=== PATIENT | female | born 1985 | race African-American/Black ===

== ENCOUNTER 2016-11-05 19:02 | Emergency (ER) | payer OTHER ==
[2016-11-05] MEDS ORDERED: METOCLOPRAMIDE HCL ORAL SOLN 10 MG/10 ML UDCUP PO ONE (19:20)
[2016-11-05] MEDS ORDERED: ASPIRIN 81 MG TABLET, CHEWABLE PO ONE (19:20)
[2016-11-05] MEDS ORDERED: MAG HYDROX/AL HYDROX/SIMETH SUSP 30 ML UDCUP PO ONE ×2 (19:20→22:07)
[2016-11-05] MEDS ORDERED: LIDOCAINE 2% VISCOUS SOLN 20 ML UDCUP PO ONE (19:20)
--- NOTE | 2016-11-05 19:20 | ER Document Report ---
ED Medical Screen (RME) - General Chief Complaint: Chest Pain Stated Complaint: CHEST PAIN Time seen by provider: 19:18 Mode of Arrival: Ambulatory Information source: Patient Notes: 31-year-old female presents to ED for substernal chest pain that radiates to the left shoulder denies shortness of breath. Denies any diaphoresis or coughing. She states she thought it was indigestion it will not relieve. As menstrual period 10/27/2016 I have greeted and performed a rapid initial assessment of this patient. A comprehensive ED assessment and evaluation of the patient, analysis of test results and completion of medical decision making process will be conducted by an additional ED providers. TRAVEL OUTSIDE OF THE [place] IN LAST 30 DAYS: No - Related Data Allergies/Adverse Reactions: No Known Allergies Allergy (Verified 07/19/15 08:43) Past Medical History Past Surgical History: Reports: Hx Gynecologic Surgery - tubal ligation
--- NOTE | 2016-11-05 20:00 | EKG REPORT ---
SEVERITY:- NORMAL ECG - SINUS RHYTHM : Confirmed by: Vanessa Moreno MD 05-Nov-2016 20:00:20
[2016-11-05 20:19] LABS: ABSOLUTE BASOPHILS # (AUTO) 0.1 10^3/uL (0.0-0.2); ABSOLUTE EOSINOPHILS # (AUTO) 0.4 10^3/uL (0.0-0.6); ABSOLUTE LYMPHOCYTES (AUTO) 2.6 10^3/uL (0.5-4.7); ABSOLUTE MONOCYTES (AUTO) 0.6 10^3/uL (0.1-1.4); ABSOLUTE NEUT (AUTO) 4.3 10^3/uL (1.7-8.2); BASOPHILS % (AUTO) 0.8 % (0-2); EOSINOPHILS % (AUTO) 4.5 % (0-6); HEMATOCRIT 37.4 % (36.0-47.0); HEMOGLOBIN 11.8 g/dL (12.0-15.5); LYMPHOCYTES % (AUTO) 32.7 % (13-45); MEAN CORPUSCULAR HEMOGLOBIN 23.1 pg (27.0-33.4); MEAN CORPUSCULAR HGB CONC 31.7 g/dL (32.0-36.0); MEAN CORPUSCULAR VOLUME 73 fl (80-97); MONOCYTES % (AUTO) 7.9 % (3-13); RED BLOOD COUNT 5.12 10^6/uL (3.72-5.28); RED CELL DISTRIBUTION WIDTH 15.1 % (11.5-14.0); SEGMENTED NEUTROPHILS % (AUTO) 54.1 % (42-78)
[2016-11-05 20:32] LABS: ALANINE AMINOTRANSFERASE 42 U/L (9-52); ALBUMIN 4.3 g/dL (3.5-5.0); ALKALINE PHOSPHATASE 65 U/L (38-126); ANION GAP 14 (5-19); ASPARTATE AMINO TRANSFERASE 26 U/L (14-36); BILIRUBIN,TOTAL 0.4 mg/dL (0.2-1.3); BLOOD UREA NITROGEN 11 mg/dL (7-20); CALCIUM 10.1 mg/dL (8.4-10.2); CARBON DIOXIDE 24 mmol/L (22-30); CHLORIDE 102 mmol/L (98-107); CREATINE KINASE 89 U/L (30-135); CREATININE RESULT 0.87 mg/dL (0.52-1.25); GLUCOSE 98 mg/dL (75-110); LIPASE 71.1 U/L (23-300); SODIUM 140.4 mmol/L (137-145); TOTAL PROTEIN 8.3 g/dL (6.3-8.2)
[2016-11-05 20:45] LABS: CREATINE KINASE MB < 0.22 ng/mL (<4.55); TROPONIN I < 0.012 ng/mL
[2016-11-05 21:49] LABS: APPEARANCE,URINE CLEAR; BILIRUBIN,URINE NEGATIVE (NEGATIVE); GLUCOSE, URINE NEGATIVE (NEGATIVE); KETONES,URINE NEGATIVE (NEGATIVE); LEUKOCYTE ESTERASE,URINE NEGATIVE (NEGATIVE); NITRITE,URINE NEGATIVE (NEGATIVE); PROTEIN,URINE NEGATIVE (NEGATIVE); URINE SPECIFIC GRAVITY 1.009; UROBILINOGEN,URINE NEGATIVE mg/dL (<2.0)
[2016-11-05] MEDS ORDERED: FAMOTIDINE 20 MG TABLET PO ONE (22:07)
[2016-11-05] MEDS ORDERED: SUCRALFATE 1 GM TABLET PO ONE (22:07)
[2016-11-05] MEDS ORDERED: HYDROCODONE/ACETAMINOPHEN 5-325 MG 6 TAB/DSPK PO PRN (22:08)
--- NOTE | 2016-11-05 22:11 | ER Document Report ---
ED General - General Chief Complaint: Chest Pain Stated Complaint: CHEST PAIN Time seen by provider: 22:05 Mode of Arrival: Ambulatory Notes: Patient is a 31-year-old female that comes emergency department for chief complaint of chest pain that is "burning" since yesterday afternoon, states that she could not sleep well because of this and she had reduced appetite today because of it. She states that she thought was reflux but because it kept on bothering her she decided to come get evaluated. She denies smoking, she states that she feels worse after she got aspirin earlier. Patient denies any shortness of breath, vomiting, abnormal bowel movements. Past medical history of tubal ligation, denies any other medical history. TRAVEL OUTSIDE OF THE [place] IN LAST 30 DAYS: No - Related Data Allergies/Adverse Reactions: No Known Allergies Allergy (Verified 07/19/15 08:43) Past Medical History - General Information source: Patient - Social History Smoking Status: Never Smoker Chew tobacco use (# tins/day): No Frequency of alcohol use: Occasional Drug Abuse: None Lives with: Family Family History: Reviewed & Not Pertinent Patient has suicidal ideation: No Patient has homicidal ideation: No Renal/ Medical History: Denies: Hx Peritoneal Dialysis GI Medical History: Reports: Hx Gastroesophageal Reflux Disease Past Surgical History: Reports: Hx Gynecologic Surgery - tubal ligation Review of Systems - Review of Systems Constitutional: No symptoms reported EENT: No symptoms reported Cardiovascular: See HPI Respiratory: No symptoms reported Gastrointestinal: See HPI Genitourinary: No symptoms reported Female Genitourinary: No symptoms reported Musculoskeletal: No symptoms reported Skin: No symptoms reported Hematologic/Lymphatic: No symptoms reported Neurological/Psychological: No symptoms reported Physical Exam - Vital signs Vitals: Temp Pulse Resp BP Pulse Ox 98.1 F 69 18 138/87 H 100 11/05/16 19:19 11/05/16 19:19 11/05/16 19:19 11/05/16 19:19 11/05/16 19:19 Interpretation: Normal - General General appearance: Appears well, Alert In distress: None - HEENT Head: Normocephalic, Atraumatic Eyes: Normal Pupils: PERRL - Respiratory Respiratory status: No respiratory distress Chest status: Nontender Breath sounds: Normal Chest palpation: Normal - Cardiovascular Rhythm: Regular Heart sounds: Normal auscultation Murmur: No - Abdominal Inspection: Normal Distension: No distension Bowel sounds: Normal Tenderness: Tender - Mildly tender in the left upper quadrant and epigastric area, otherwise soft benign abdomen Organomegaly: No organomegaly - Back Back: Normal, Nontender - Extremities General upper extremity: Normal inspection, Nontender, Normal color, Normal ROM , Normal temperature General lower extremity: Normal inspection, Nontender, Normal color, Normal ROM , Normal temperature, Normal weight bearing. No: Mirlande's sign - Neurological Neuro grossly intact: Yes Cognition: Normal Orientation: AAOx4 [place] Coma Scale Eye Opening: Spontaneous Lisa Coma Scale Verbal: Oriented [place] Coma Scale Motor: Obeys Commands [place] Coma Scale Total: 15 Speech: Normal Motor strength normal: LUE, RUE, LLE, RLE Sensory: Normal - Psychological Associated symptoms: Normal affect, Normal mood - Skin Skin Temperature: Warm Skin Moisture: Dry Skin Color: Normal Course - Re-evaluation Re-evalutation: Patient is a well-appearing 31-year-old female, has left upper quadrant pain on examination which is mild, has burning symptoms in her epigastric area and chest. I reviewed the workup from triage including negative EKG, lab work. Patient has improved symptoms after GI cocktail which initially worsened with aspirin, patient will be treated with Carafate, omeprazole, I strongly suspect GERD as the source with no other risk factors a negative workup and symptoms that began yesterday. - Vital Signs Vital signs: Temp Pulse Resp BP Pulse Ox 98 F 62 12 126/78 H 100 11/05/16 22:48 11/05/16 22:48 11/05/16 22:48 11/05/16 22:48 11/05/16 22:48 - Laboratory Result Diagrams: 11/05/16 19:56 11/05/16 19:56 Laboratory results interpreted by me: 11/05/16 11/05/16 19:56 19:56 Hgb 11.8 L MCV 73 L MCH 23.1 L MCHC 31.7 L RDW 15.1 H Total Protein 8.3 H Discharge - Discharge Clinical Impression: Epigastric pain Condition: Stable Disposition: HOME, SELF-CARE Additional Instructions: Your workup is normal, your symptoms are consistent with a gastrointestinal source, probably gastritis. Avoid caffeine, NSAIDs, alcohol, smoking, or seafood. Take the medication as prescribed, follow up with primary care for additional management. Take Tums or Rolaids if needed additionally for symptoms. Return to the emergency department for any concerning or worsening symptoms including vomiting, vomiting blood, black bowel movements, severe abdominal pain , etc. Prescriptions: Omeprazole 40 mg PO DAILY #60 capsule. Sucralfate [Carafate 1 gm Tablet] 1 gm PO QID #40 tablet
[2016-11-05 22:50] VITALS: BP 126/78
== END 2016-11-05 22:48 | disposition home or self-care (01) ==
LOC: ER 19:02
DX: R10.13 Epigastric pain (principal); R07.9 Chest pain, unspecified; K21.9 Gastro-esophageal reflux disease without esophagitis; Z98.51 Tubal ligation status
CPT/HCPCS: 93005; 99285; 36415; 82553; 82550; 83690; 84703; 85025; 80053; 81001; 84484; 71020; 93010; J3490